=== PATIENT | female | born 1975 | race Caucasian/White ===

== ENCOUNTER 2017-04-15 19:37 | Emergency (ER) | payer OTHER ==
--- NOTE | ~2017-04-15 | CR181 ---
[facility]. [facility] A Service of [facility] & [facility] / [facility] RADIOLOGY TEXT RESULTS PATIENT: KOFI COLBY LOCATION: SED : 75 UNIT #: [id number] AGE: [address]: Familia Montoya MD SEX: F ORDER DR: [id number] [place] [id number] E MR#: [id number] Acc #: [id number] NAME: KOFI COLBY : 1975 SEX: F STUDY DATE/TIME: 04/15/2017 21:06 UNIT: SED ROOM: STUDY DESCRIPTION: CR Lumbar Spine 2 or 3 Views Attending Physician: Familia Montoya M.D. Ordering Physician: Familia Montoya M.D. Primary Care Physician: Pradip Collier M.D. MEDICAL IMAGING REPORT This report is preliminary unless electronic signature is present. EXAM Lumbar spine series INDICATIONS Lower back pain after a fall 3 days ago. PROCEDURE Three views of the lumbar spine. COMPARISON None FINDINGS Lumbar bodies have normal height. Alignment is preserved. Gastric stimulator is in place. Previous cholecystectomy. IMPRESSION No active process. Dictated by... John Chaidez M.D. THIS IS AN ELECTRONICALLY VERIFIED REPORT John Chaidez M.D. at 04/16/2017 2:26 PM EED/psc TD: 04/15/2017 23:05 JOB #: [id number] MEDICAL IMAGING REPORT Page 1 of 1
[~2017-04-15 19:37] MED LIST: ADDERALL 10 MG10 M1 PO; ADDERALL20 M1 PO; ALBUTEROL17 GM INH; ALPRAZOLAM PO; ALPRAZOLAM1 MG PO; AMBIEN10 MG PO; AUGMENTIN PO; CARAFATE1 GM; CATAPRES0.1 M1 PO; CATAPRES0.1 MG PO; CLONIDINE HCL0.1 MG PO; CREON DR 12,001 EAC1 PO; CYMBALTA30 M1 PO; DEPAKOTE ER250 MG PO; DEPAKOTE PO; DESYREL100 MG PO; DESYREL50 MG PO; FENOFIBRATE145 M1 PO; FENOFIBRATE145 MG PO; FENOFIBRATE160 MG PO; FLEXERIL PO; GLUCOPHAGE XR500 MG PO; GLUCOPHAGE500 MG PO; GLUCOTROL PO; HUMALOG MIX 75/10 ML SUBQ; HUMALOG100 U/M2 SUBQ; HUMALOG100 U/ML SUBQ; HYDROCODON-ACE1 EAC5 PO; HYDROCODON-ACE1 EAC7 PO; HYDROCODONE/APA1 T15 PO; HYDROXYZINE HCL25 M1 PO; HYDROXYZINE PAM25 MG PO; IBUPROFEN PO; INDOMETHACIN50 MG PO; KEFLEX PO; LEVEMIR FL100 UNIT/1 SQ; LEVEMIR FL100 UNIT/1 SUBQ; LEVEMIR100 U/ML SUBQ; LEVEMIR100 UNITS/ SUBQ; LIPITOR80 MG PO; LOPID600 MG PO; LORTAB 10-5001 EACH PO; LORTAB 101 TAB 10/5 PO; LORTAB 7.5-5001 TAB PO; MACROBID 100 M100 MG PO; MACROBID100 M1 PO; MEDROL DOSEPAK4 MG PO; METOCLOPRAMIDE H5 MG PO; MIRALAX255 GM PO; NEURONTIN300 MG PO; NEURONTIN800 MG PO; NO MEDICATIONS; NORCO 5/325 TAB1 TAB PO; NORCO1 TAB 10/3 PO; OMEGA 3-6-9 11200 M1 PO; OMEPRAZOLE20 M2 PO; ONDANSETRO8 MG/UDTAB PO; ORUDIS75 M1 DOB; PANTOPRAZOLE SO40 MG PO; PATIENT'S PHARMACY; PERCOCET 10/3251 TAB PO; PERCOCET 5-3251 TAB PO; PERCOCET PO; PHENERGAN SUPP25 MG PR; PHENERGAN25 M1 PO; PHENERGAN25 MG PO; PRAVASTATIN SOD40 MG PO; PREMARIN PO; PREMARIN0.625 MG PO; PRILOSEC PO; PROPRANOLOL PO; PROTONIX PO; PROZAC PO; QUETIAPINE FUM300 MG PO; QUETIAPINE FUMA50 MG PO; REGLAN PO; REGLAN5 MG PO; SEROQUEL PO; SEROQUEL300 MG PO; SEROQUEL50 M1 PO; SIMVASTATIN20 MG PO; TRAZODONE PO; TYLOX 5/500 CAP1 CAP PO; VITAMIN D; VITAMIN D 22000 UNIT PO; VITAMIN D50000 UNIT PO; XANAX1 MG PO; ZOCOR PO; ZOFRAN ODT4 MG PO; ZOFRAN PO; ZOMIG ZMT5 MG/TAB PO; ZOVIRAX800 MG PO
[2017-04-15] MEDS ORDERED: GLUCOPHAGE XR750 MG PO (20:02)
[2017-04-15 21:05] LABS: URINE SOURCE CLEAN CATCH
[2017-04-15 21:08] LABS: URINE APPEARANCE CLEAR; URINE BILIRUBIN NEG (NEG); URINE BLOOD NEG (NEG); URINE COLOR YELLOW; URINE GLUCOSE 300 MG/DL (NORM); URINE KETONE 1+ (NEG); URINE LEUKOCYTE ESTERASE NEG (NEG); URINE NITRATE NEG (NEG); URINE PH 5.5 (5-8); URINE PROTEIN NEG (NEG); URINE UROBILINOGEN 0.2 MG/DL (NORM)
[2017-04-15 21:09] LABS: MICRO INDICATED? NO
[2017-04-15 21:18] LABS: AMPHETAMINE NEG (NEG); BARBITURATES NEG (NEG); BENZODIAZEPINES POS (NEG); COCAINE NEG (NEG); MARIJUANA NEG (NEG); OPIATES NEG (NEG); TRICYCLIC ANTIDEPRESSANTS POS (NEG); U METHADONE NEG (NEG)
[2017-04-15 21:29] LABS: BASOPHIL# 0.1 X10e3 (0-0.3); BASOPHIL% 0.8 % (0-2.5); EOSINOPHIL# 0.1 X10e3 (0-0.7); EOSINOPHIL% 1.9 % (0.0-7.0); HEMATOCRIT 38.9 % (35.0-45.0); HEMOGLOBIN 13.3 gm/dL (12.0-16.0); LYMPHOCYTE# 2.1 X10e3 (1.0-3.5); LYMPHOCYTE% 28.6 % (17.0-45.0); MEAN CELL VOLUME 82.3 FL (83-96); MEAN CORPUSCULAR HEMOGLOBIN 28.1 PG (28-34); MEAN CORPUSCULAR HGB CONC 34.2 g/dL (30-36); MEAN PLATELET VOLUME 8.4 FL (6.5-11.5); MONOCYTE# 0.4 X10e3 (0-1.0); MONOCYTE% 5.4 % (3.0-12.0); NEUTROPHIL# 4.7 X10e3 (1.5-7.1); NEUTROPHIL% 63.3 % (40-75); PLATELET COUNT 210 X10e3 (140-420); RED BLOOD COUNT 4.73 X10e (3.90-5.30); RED CELL DISTRIBUTION WIDTH 16.6 % (11.0-15.5); WHITE BLOOD COUNT 7.3 X10e3 (4.0-10.5)
[2017-04-15 21:32] LABS: DIFF IND NO
[2017-04-15 21:33] LABS: BUN/CREATININE RATIO 23.33; CALCIUM SERUM 9.1 mg/dL (8.4-10.2); CREATININE SERUM 0.3 mg/dL (0.6-1.4); GLOM FILT RATE Estimated 142.3 mL/min (>60); POTASSIUM 4.6 mmol/L (3.5-5.1)
== END 2017-04-15 23:45 | disposition home or self-care (01) ==
LOC: SED 19:37
PROVIDERS: Emergency Medicine
DX: M54.16 Radiculopathy, lumbar region (principal); F11.23 Opioid dependence with withdrawal; I10 Essential (primary) hypertension; J44.9 Chronic obstructive pulmonary disease, unspecified; F17.200 Nicotine dependence, unspecified, uncomplicated; F41.9 Anxiety disorder, unspecified; F31.9 Bipolar disorder, unspecified; Z90.710 Acquired absence of both cervix and uterus; Z90.49 Acquired absence of other specified parts of digestive tract; Z88.5 Allergy status to narcotic agent
CPT/HCPCS: 36415; 72100; 80048; 80307; 81003; 82947; 85025; 96361; 96374; 96375; 96376; 99284; J1170; J2405

== ENCOUNTER → 2017-04-23 | Outpatient (CLI) | payer OTHER ==
[~2017-04-23] MED LIST changes: +GLUCOPHAGE XR750 MG PO
--- NOTE | ~2017-04-23 | CT98 ---
[facility] A Service of [facility] RADIOLOGY TEXT RESULTS PATIENT: KOFI COLBY LOCATION: RUST : 75 UNIT #: [id number] AGE: [address]: Pradip Collier MD SEX: F ORDER DR: [id number] [address] [address] [id number] O MR#: [id number] Acc #: [id number] NAME: KOFI COLBY : 1975 SEX: F STUDY DATE/TIME: 04/23/2017 9:57 UNIT: RUST ROOM: STUDY DESCRIPTION: CT Lumbar Spine Wo Cont Attending Physician: Pradip Collier M.D. Referring Physician: Pradip Collier M.D. Ordering Physician: Pradip Collier M.D. Primary Care Physician: Pradip Collier M.D. MEDICAL IMAGING REPORT This report is preliminary unless electronic signature is present. EXAM CT lumbar spine HISTORY Low back pain radiating down both legs status post fall on deck 1.5 weeks ago. TECHNIQUE Axial imaging of the lumbar spine was performed with multiplanar reconstructions. This CT exam was performed with one or more of the following radiation dose reduction techniques: automatic control, adjustment of mA and/or kV according to patient size, and iterative reconstruction. FINDINGS Lumbar alignment is normal. Disc space and vertebral body height is maintained. The study shows minimal posterior disc bulging diffusely at 4-5. There is minimal central disc bulging at L5-S1 there is no evidence of exiting nerve root compression. No fractures are identified. CONCLUSION Minimal diffuse bulging of the disc at L4-5 very small central disc protrusion at L5-S1 with no evidence of significant exiting nerve root compression. No fractures identified. Dictated by... Familia Perea M.D. THIS IS AN ELECTRONICALLY VERIFIED REPORT Familia Perea M.D. at 04/28/2017 7:13 AM JAYME/carrie [facility] A Service of [facility] & [facility] RADIOLOGY TEXT RESULTS PATIENT: KOFI COLBY LOCATION: RUST : 75 UNIT #: [id number] AGE: [address]: Pradip Collier MD SEX: F ORDER DR: TD: 04/23/2017 18:15 JOB #: [id number] MEDICAL IMAGING REPORT Page 1 of 1
== END | disposition home or self-care (01) ==
LOC: SCT 09:00
DX: M54.16 Radiculopathy, lumbar region (principal); M51.16 Intervertebral disc disorders with radiculopathy, lumbar region
CPT/HCPCS: 72131

== ENCOUNTER → 2017-06-17 | Outpatient (CLI) | payer OTHER ==
--- NOTE | ~2017-06-17 | CT98 ---
[facility] A Service of [facility] / [facility] RADIOLOGY TEXT RESULTS PATIENT: KOFI COLBY LOCATION: RUST : 75 UNIT #: [id number] AGE: [address]: Pradip Collier MD SEX: F ORDER DR: [id number] [address] [address] [id number] O MR#: [id number] Acc #: [id number] NAME: KOFI COLBY : 1975 SEX: F STUDY DATE/TIME: 06/17/2017 10:45 UNIT: RUST ROOM: STUDY DESCRIPTION: CT Lumbar Spine Wo Cont Attending Physician: Pradip Collier M.D. Referring Physician: Pradip Collier M.D. Ordering Physician: Pradip Collier M.D. Primary Care Physician: Pradip Collier M.D. MEDICAL IMAGING REPORT This report is preliminary unless electronic signature is present. EXAM Lumbar spine CT. HISTORY Loss of sensation in the legs with low back pain and tingling. Symptoms have been present for the past 2 months accompanied by multiple falls. TECHNIQUE Axial imaging was obtained from the lower thoracic spine to the sacrum and evaluated at bone and soft tissue windows with multiplanar reformats. This CT exam was performed with one or more of the following radiation dose reduction techniques: automatic exposure control, adjustment of mA and/or kV according to patient size, and iterative reconstruction. COMPARISON STUDIES Comparison scan 04/23/2017. FINDINGS Alignment is satisfactory. Disc space height is preserved. There is mild concentric disc bulging at L3-4 and L4-5. Central stenosis is present to a mild degree at each of these levels more prominent at L4-5. Bony foramina are widely patent. No fractures or pars defects are seen. No destructive bone lesions are noted. Paraspinous soft tissues are unremarkable with no masses seen. 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 No acute bony abnormalities seen. No evidence of disc herniation. Dictated by... Jose Ayala M.D. [facility] A Service of [facility] & [facility] RADIOLOGY TEXT RESULTS PATIENT: KOFI COLBY LOCATION: RUST : 75 UNIT #: [id number] AGE: [address]: Pradip Collier MD SEX: F ORDER DR: THIS IS AN ELECTRONICALLY VERIFIED REPORT Jose Ayala M.D. at 06/19/2017 4:43 PM HELEN/hermelindo TD: 06/18/2017 22:35 JOB #: [id number] MEDICAL IMAGING REPORT Page 1 of 1
== END | disposition home or self-care (01) ==
LOC: CCAT 10:00 → SCT 10:00
DX: M51.16 Intervertebral disc disorders with radiculopathy, lumbar region (principal); M48.06 Spinal stenosis, lumbar region
CPT/HCPCS: 72131